=== PATIENT | male | born 1955 | race Caucasian/White ===

== ENCOUNTER 2022-11-13 10:05 | Outpatient (RCR) | payer MEDICARE | END 2022-11-16 | disposition home or self-care (01) | LOC: CARDREHAB | DX: Z48.812 Encounter for surgical aftercare following surgery on the circulatory system (principal); Z95.1 Presence of aortocoronary bypass graft ==

== ENCOUNTER → 2022-11-21 | Outpatient (CLI) | payer MEDICARE ==
[2022-11-21 13:07] LABS: POTASSIUM 4.1 mmol/L (3.5-5.1)
[2022-11-21 13:08] LABS: CALCIUM 9.8 mg/dL (8.3-10.5)
== END ==
LOC: LAB 12:41
DX: Z95.1 Presence of aortocoronary bypass graft (principal)